=== PATIENT | male | born 1980 | race Hispanic/Latino ===

== ENCOUNTER 2022-07-29 21:15 | Emergency (ER) | payer SELFPAY ==
[2022-07-29] MEDS ORDERED: Lidocaine Viscous Sol 2% 15 ml UD Cup ONE (21:44)
[2022-07-29] MEDS ORDERED: Mag-Al 1200 mg/1200 mg/30 ML UDCUP ONE (21:44)
== END 2022-07-29 21:59 | disposition home or self-care (01) ==
LOC: ERS 21:15
DX: R10.13 Epigastric pain (principal); A04.8 Other specified bacterial intestinal infections
CPT/HCPCS: 99283

== ENCOUNTER 2022-09-29 19:12 | Emergency (ER) | payer SELFPAY ==
[2022-09-29 19:36] LABS: #Eosinphils 0.1 thou/uL (0.0-0.7); #Monocytes 0.7 thou/uL (0.11-0.59); #Neutrophils 4.4 thou/uL (1.40-6.50); %Basophils 0.4 % (0.0-1.0); %Eosinophils 1.5 % (0.0-10.0); %Lymphocytes 37.8 % (21.0-51.0); %Monocytes 7.8 % (0.0-10.0); %Neutrophils 52.3 % (42.0-75.0); Hemoglobin 16.2 g/dL (14.0-18.0); Mean Corpuscular Hemoglobin 31.1 pg (27.0-31.0); Mean Corpuscular Volume 86.4 fl (78.0-98.0); Mean Platelet Volume 9.1 fL (7.4-10.4); Platelet Count 278 10x3/uL (130-400); RBC Distribution Width 12.6 % (11.5-14.5); Red Blood Cell (RBC) Count 5.21 mill/uL (4.70-6.10); White Blood Cell (WBC) Count 8.5 10x3/uL (4.8-10.8)
[2022-09-29 19:58] LABS: ALT (SGPT) 71 U/L (8-55); AST (SGOT) 29 U/L (5-34); Albumin 4.8 g/dL (3.5-5.0); Alkaline Phosphatase 100 U/L (40-110); Anion Gap 14 mmol/L (10-20); BUN (Urea Nitrogen) 26 mg/dL (8.9-20.6); Bilirubin, Total 0.6 mg/dL (0.2-1.2); Calc. Creatinine Clearance 0 mL/min (70-130); Calcium 10.2 mg/dL (7.8-10.44); Carbon Dioxide 23 mmol/L (22-29); Chloride 105 mmol/L (98-107); Estimated GFR 81; Globulin 2.9 g/dL (2.4-3.5); Glucose 142 mg/dL (70-105); Lipase 42 U/L (8-78); Sodium 138 mmol/L (136-145)
[2022-09-29] MEDS ORDERED: Lidocaine Viscous Sol 2% 15 ml UD Cup ONE (23:21)
[2022-09-29] MEDS ORDERED: Mag-Al 1200 mg/1200 mg/30 ML UDCUP ONE (23:21)
== END 2022-09-29 23:27 | disposition home or self-care (01) ==
LOC: ERS 19:12
DX: K29.70 Gastritis, unspecified, without bleeding (principal)
CPT/HCPCS: 36415; 76705; 80053; 83690; 85025; 93005